=== PATIENT | female | born 1965 | race Caucasian/White ===

== ENCOUNTER 2016-09-06 11:41 | Emergency (ER) | payer OTHER ==
[2016-09-06 12:28] VITALS: RESP 16
--- NOTE | 2016-09-06 13:29 | UCPHY ---
H & P Time Seen by Provider: 09/06/16 13:08 Patient Type: New HPI/ROS: 51-year-old female states she fell while skiing had her hand in her ski pole and stretched her left thumb with the fall. Is here today complaining of left thumb pain difficulty moving her thumb as well. Review of systems As per HPI General no fever no chills no weakness HEENT no eye pain no eye discharge. No eye redness, no sore throat Respiratory no cough, no shortness of breath Cardiac no chest pain, no peripheral edema GI no abdominal pain, no diarrhea, no constipation, no nausea, no vomiting no flank pain, no hematuria, no dysuria Musculoskeletal no myalgias, positive joint pain Heme no easy bruising, no easy bleeding Endo no polyuria, no polydipsia Skin no rashes, no pruritus Neuro no syncope, no dizziness, no headaches Psych is no suicidal ideation, no homicidal ideation Past Medical/Surgical History: Dermatitis Social History: Patient denies excessive alcohol or drug use Smoking Status: Unknown if ever smoked Physical Exam: 51-year-old female alert and oriented no acute distress nontoxic appearance afebrile Alert and oriented in no acute distress nontoxic appearance, afebrile Atraumatic normocephalic Neck no JVD Lungs clear to auscultation, no respiratory distress Heart regular rate and rhythm Extremities no cyanosis clubbing edema Left hand-positive edema positive ecchymosis at thenar eminence and proximal thumb, decreased range of motion of thumb unable to oppose Good capillary refill, sensation intact, good range of motion at DIP Constitutional: Initial Vital Signs Temperature (C) 36.4 C 09/06/16 12:26 Heart Rate 50 L 09/06/16 12:26 Respiratory Rate 16 09/06/16 12:26 Blood Pressure 127/86 H 09/06/16 12:26 O2 Sat (%) 98 09/06/16 12:26 O2 Delivery Mode Room Air Allergies/Adverse Reactions: No Known Allergies Allergy (Verified 09/06/16 12:28) Home Medications: Medication Instructions Recorded Doxycycline Monohydrate [Oracea] 40 mg PO DAILY 02/24/12 Medical Decision Making - Diagnostics Imaging: Left thumb Negative for fracture ED Course/Re-evaluation: Patient seen and evaluated for left thumb injury Left thumb x-ray negative for fracture Impression Ulnar collateral ligament strain left thumb Plan Thumb spica Follow-up with Hand surgery Rest ice compression elevation Departure - Departure Disposition: Home, Routine, Self-Care Clinical Impression: Gamekeeper's thumb, left Condition: Good Instructions: Skier's Thumb (ED) Additional Instructions: Rest, ice, elevate, wear splint Arrange follow-up with Hand surgery Referrals: Tami Akhtar PA [Primary Care Provider] - As per Instructions Olman Ellington MD [Medical Doctor] - As per Instructions - PQRS PQRS Measurement: na
[2016-09-06 13:38] VITALS: BP 125/85; PULSE 52; TEMP 97.7; O2SAT 96
== END 2016-09-06 13:38 | disposition home or self-care (01) ==
LOC: CED 11:41
DX: S63.642A Sprain of metacarpophalangeal joint of left thumb, initial encounter (principal); V00.321A Fall from snow-skis, initial encounter; Y93.23 Activity, snow (alpine) (downhill) skiing, snowboarding, sledding, tobogganing and snow tubing
CPT/HCPCS: 73130-PO; G0463-PO; L3807